=== PATIENT | male | born 1955 | race Caucasian/White ===

== ENCOUNTER → 2017-01-02 | Outpatient (CLI) | payer MEDICARE, MEDICAID ==
[~2017-01-02] MED LIST: AMOXICILLIN500 MG PO; AUGMENTIN 875875 MG PO; CLONIDINE0.1 MG PO; FLONASE ALLERG9.9 ML NAS; MOTRIN400 MG PO; PREDNISONE10 MG PO; TRAMADOL HCL50 MG PO; VIBRAMYCIN100 MG PO; VICODIN 5/500 505 MG PO; ZANTAC150 MG PO
[2017-01-02 08:12] LABS: BASO # 0.1 10*3/uL (0.0-0.1); BASO % 0.6 % (0.0-1.0); EOS # 0.3 10*3/uL (0.0-0.4); EOS % 2.9 % (1.0-4.0); HEMATOCRIT 41.9 % (42.0-52.0); HEMOGLOBIN 13.9 g/dl (14.0-18.0); IG # 0.1 10*3/uL (0.0-0.1); LYMPH # 2.6 10*3/uL (1.3-4.4); LYMPH % 24.6 % (27.0-41.0); MEAN CELL VOLUME 93.3 fl (80.0-94.0); MEAN CORPUSCULAR HGB CONC 33.2 g/dl (33.0-37.0); MEAN PLATELET VOLUME 10.8 fl (9.6-12.3); MONO # 1.2 10*3/uL (0.1-1.0); MONO % 11.5 % (3.0-9.0); NEUT # 6.2 10*3/uL (2.3-7.9); NEUT % 59.9 % (47.0-73.0); PLATELET COUNT AUTOMATED 257 10*3/uL (130-400); RED BLOOD COUNT 4.49 10*6/uL (4.50-5.90); RED CELL DISTRI WIDTH 13.7 % (0-14.5); WHITE BLOOD COUNT 10.4 10*3/uL (4.8-10.8)
[2017-01-02 08:40] LABS: ALBUMIN 3.8 gm/dl (3.1-4.5); ALKALINE PHOSPHATASE 92 U/L (45-117); BILIRUBIN, TOTAL 0.3 mg/dl (0.2-1.0); BUN 16 mg/dl (7-24); CARBON DIOXIDE 28 mmol/L (21-32); CHLORIDE 102 mmol/L (98-107); CHOLESTEROL 118 mg/dL (<200); EST GLOM FILT AFRICAN AMERICAN > 60 ml/min; FREE T4 1.16 ng/dl (0.76-1.46); GLUCOSE 100 mg/dL (65-99); HDL CHOLESTEROL 33 mg/dl (40-60); LDL CHOLESTEROL 55 mg/dL (9-159); POTASSIUM 4.1 mmol/L (3.5-5.1); SGOT/AST 14 IU/L (3-35); SGPT/ALT 12 U/L (12-78); SODIUM 139 mmol/L (136-145); TOTAL PROTEIN 7.9 gm/dL (6.4-8.2); TRIGLYCERIDES 152 mg/dl (<150); VLDL CHOLESTEROL 30 mg/dL (6-40)
[2017-01-03 05:07] LABS: MICRO ALBUMIN/CRE RATIO 17.2 (0.0-30.0)
== END | disposition home or self-care (01) ==
LOC: LAB 07:42
PROVIDERS: Internal Medicine
DX: E78.5 Hyperlipidemia, unspecified (principal); I10 Essential (primary) hypertension

== ENCOUNTER → 2017-03-04 | Outpatient (CLI) | payer MEDICARE, MEDICAID ==
[2017-03-04 14:09] LABS: ALBUMIN 3.8 gm/dl (3.1-4.5); BUN 15 mg/dl (7-24); CHLORIDE 101 mmol/L (98-107); CREATININE 1.17 mg/dL (0.70-1.30); PHOSPHOROUS 3.1 mg/dL (2.5-4.9); POTASSIUM 3.9 mmol/L (3.5-5.1); SODIUM 135 mmol/L (136-145)
[2017-03-05 11:05] LABS: MICRO ALBUMIN/CRE RATIO 10.2 (0.0-30.0)
== END | disposition home or self-care (01) ==
LOC: LAB 12:51 → US 13:00
PROVIDERS: Internal Medicine
DX: N18.3 Chronic kidney disease, stage 3 (moderate) (principal); N32.89 Other specified disorders of bladder; N28.1 Cyst of kidney, acquired

== ENCOUNTER → 2018-04-14 | Outpatient (CLI) | payer MEDICARE, MEDICAID ==
[~2018-04-14] MED LIST changes: +ADVAIR HFA 115-12 GM INH; +AMLODIPINE BESY10 MG PO; +ATENOLOL25 MG PO; +ATORVASTATIN CA20 M1 PO; +GOOD NEIGHBOR150 MG PO; +LISINOPRIL-HCT1 EACH PO; +NATURE'S BLEND F1 MG PO; +NEURONTIN300 MG PO; +PROVENTIL HFA6.7 GM IH
[2018-04-14 09:54] LABS: BASO # 0.1 10*3/uL (0.0-0.1); BASO % 0.8 % (0.0-1.0); EOS # 0.2 10*3/uL (0.0-0.4); EOS % 2.9 % (1.0-4.0); HEMATOCRIT 40.9 % (42.0-52.0); HEMOGLOBIN 13.6 g/dl (14.0-18.0); LYMPH # 2.1 10*3/uL (1.3-4.4); LYMPH % 24.9 % (27.0-41.0); MEAN CELL VOLUME 92.1 fl (80.0-94.0); MEAN CORPUSCULAR HGB 30.6 pg (27.0-31.0); MEAN CORPUSCULAR HGB CONC 33.3 g/dl (33.0-37.0); MEAN PLATELET VOLUME 10.1 fl (9.6-12.3); MONO % 11.9 % (3.0-9.0); NEUT # 4.9 10*3/uL (2.3-7.9); NEUT % 59.3 % (47.0-73.0); PLATELET COUNT AUTOMATED 212 10*3/uL (130-400); RED BLOOD COUNT 4.44 10*6/uL (4.50-5.90); RED CELL DISTRI WIDTH 13.7 % (0-14.5); WHITE BLOOD COUNT 8.3 10*3/uL (4.8-10.8)
[2018-04-14 10:11] LABS: ALBUMIN 3.8 gm/dl (3.1-4.5); ALKALINE PHOSPHATASE 88 U/L (45-117); BUN 14 mg/dl (7-24); CHLORIDE 102 mmol/L (98-107); CHOLESTEROL 100 mg/dL (<200); CREATININE 1.26 mg/dL (0.70-1.30); FREE T4 1.06 ng/dl (0.76-1.46); HDL CHOLESTEROL 32 mg/dl (40-60); LDL CHOLESTEROL 40 mg/dL (9-159); POTASSIUM 4.2 mmol/L (3.5-5.1); SGOT/AST 17 IU/L (3-35); SGPT/ALT 11 U/L (12-78); SODIUM 136 mmol/L (136-145); TOTAL PROTEIN 7.8 gm/dL (6.4-8.2); TRIGLYCERIDES 139 mg/dl (<150); VLDL CHOLESTEROL 28 mg/dL (6-40)
[2018-04-15 09:07] LABS: PROSTATE SPECIFIC AG FREE 0.3 ng/mL; PROSTATE SPECIFIC AG, SERUM 0.7 ng/mL (0.0-4.0)
== END | disposition home or self-care (01) ==
LOC: LAB 09:10
PROVIDERS: Internal Medicine
DX: Z12.5 Encounter for screening for malignant neoplasm of prostate (principal); I10 Essential (primary) hypertension

== ENCOUNTER → 2018-05-09 | Day surgery (SDC) | payer MEDICARE, MEDICAID ==
[~2018-05-09] VITALS: Ht 200.6 cm; Wt 140.6 kg
--- NOTE | ~2018-05-09 | O ---
[place], [place] OPERATIVE NOTE NAME: MANISHA GONZALEZ UNIT #: [id number] ROOM: DOCTOR: NEETU ESCOTO MD BIRTHDATE: [birth year] DOS: 05/09/2018 HISTORY OF PRESENT ILLNESS: The patient is a 63-year-old patient who presented with chief complaint of pain of concern about colonic screening. His last colonoscopy was 10 years ago. The patient with borderline anemia of 13.6 and 40.9. ALLERGIES: No known medication. FAMILY HISTORY: Noncontributory. PAST SURGICAL HISTORY: Noncontributory. PAST MEDICAL HISTORY: COPD, obesity, hypertension, hyperlipidemia, pulmonary embolism. SOCIAL HISTORY: Smoker, stopped alcohol consumption 15 years ago. PROCEDURE: Today's procedure part of investigation is colonoscopy plus piecemeal polypectomy, rectal and splenic flexure, sessile polyp. PREMEDICATION: Propofol. SCOPE: Olympus folding colonoscope 10L video. REPORT: After putting the patient in left lateral position and application of lubricant to the scope, the scope was introduced. Thereafter, under direct visualization, I advanced through a very tortuous and very redundant colon. Upon this ileocecal valve was defined. Retained semi-liquid stool all along the length of colon, which was hindering visualization and makes detail assessment quite difficult was noticed. Piecemeal polypectomy on splenic flexure, rectal pouch, and sessile polyps performed. Air was suctioned out. The patient was extubated, tolerated the procedure well. IMPRESSION: Retained semi-liquid stool all along the length of the colon. Compromised visualization to be about 70% only diverticulosis of left colon, tortuous and redundant colon, colonic polyp and splenic flexure and rectal pouch. PLAN AND DISCUSSION: High fiber diet. ACTIVITY: Ad dony. FOLLOWUP: As outpatient. Thank you very much indeed. [place], [place] OPERATIVE NOTE NAME: MANISHA GONZALEZ UNIT #: [id number] ROOM: DOCTOR: NEETU ESCOTO MD BIRTHDATE: [birth year] NEETU ESCOTO MD CM:OPRECORD:OPERATIVE NOTE [id number] NEETU ESCOTO MD 05/09/18 1525 interface
[2018-05-09 11:30] VITALS: BP 128/78
[2018-05-09 13:46] VITALS: BP 101/51
[2018-05-09 14:00] VITALS: BP 96/57
[2018-05-09 14:15] VITALS: BP 114/62
== END | disposition home or self-care (01) ==
LOC: SDC 05-07 08:45
DX: D12.5 Benign neoplasm of sigmoid colon (principal); K62.1 Rectal polyp; K57.30 Diverticulosis of large intestine without perforation or abscess without bleeding; D64.9 Anemia, unspecified; J44.9 Chronic obstructive pulmonary disease, unspecified; E66.9 Obesity, unspecified; Z68.34 Body mass index [BMI] 34.0-34.9, adult; I10 Essential (primary) hypertension; F17.210 Nicotine dependence, cigarettes, uncomplicated; F10.21 Alcohol dependence, in remission; F41.9 Anxiety disorder, unspecified; F43.29 Adjustment disorder with other symptoms; Z86.711 Personal history of pulmonary embolism; Z98.890 Other specified postprocedural states; Z79.899 Other long term (current) drug therapy; Z83.3 Family history of diabetes mellitus; Z82.49 Family history of ischemic heart disease and other diseases of the circulatory system

== ENCOUNTER → 2019-04-22 | Outpatient (CLI) | payer MEDICARE, MEDICAID | END | disposition home or self-care (01) | LOC: LAB 15:44 | PROVIDERS: Internal Medicine | DX: E11.22 Type 2 diabetes mellitus with diabetic chronic kidney disease (principal); N18.9 Chronic kidney disease, unspecified ==

== ENCOUNTER → 2019-11-26 | Outpatient (CLI) | payer MEDICARE, MEDICAID ==
[2019-11-26 12:34] LABS: BASO # 0.1 10*3/uL (0.0-0.1); BASO % 0.8 % (0.0-1.0); EOS # 0.3 10*3/uL (0.0-0.4); EOS % 3.3 % (1.0-4.0); HEMATOCRIT 39.4 % (42.0-52.0); LYMPH # 1.8 10*3/uL (1.3-4.4); LYMPH % 19.3 % (27.0-41.0); MEAN CELL VOLUME 92.3 fl (80.0-94.0); MEAN CORPUSCULAR HGB 30.4 pg (27.0-31.0); MONO # 1.2 10*3/uL (0.1-1.0); MONO % 12.7 % (3.0-9.0); NEUT # 5.7 10*3/uL (2.3-7.9); NEUT % 63.1 % (47.0-73.0); PLATELET COUNT AUTOMATED 257 10*3/uL (130-400); RED BLOOD COUNT 4.27 10*6/uL (4.50-5.90); WHITE BLOOD COUNT 9.1 10*3/uL (4.8-10.8)
[2019-11-26 12:56] LABS: BUN 17 mg/dl (7-24); CHLORIDE 101 mmol/L (98-107); CREATININE 1.39 mg/dL (0.70-1.30); SODIUM 133 mmol/L (136-145)
[2019-11-26 13:00] LABS: BILIRUBIN 1+ (NEGATIVE); BLOOD 3+ (NEGATIVE); CLARITY CLOUDY (CLEAR); COLOR YELLOW (YELLOW); GLUCOSE NEGATIVE (NEGATIVE); KETONE NEGATIVE (NEGATIVE); PH 6.5 (5.0-9.0); SPECIFIC GRAVITY 1.015 (1.005-1.030)
[2019-11-26 13:01] LABS: LEUKO ESTERASE 3+ (NEGATIVE); NITRITE POSITIVE (NEGATIVE); UROBILINOGEN 0.2 E.U./dl (0.2-1.0)
[2019-11-26 13:14] LABS: BACTERIA 4+; RBC TNTC rbc/hpf (0-2); WBC TNTC wbc/hpf (0-5)
[2019-11-27 11:09] LABS: PROSTATE SPECIFIC AG FREE 0.21 ng/mL; PROSTATE SPECIFIC AG, SERUM 1.5 ng/mL (0.0-4.0)
== END | disposition home or self-care (01) ==
LOC: LAB 11:47 → US 13:00
PROVIDERS: Internal Medicine
DX: N28.1 Cyst of kidney, acquired (principal); N40.1 Benign prostatic hyperplasia with lower urinary tract symptoms; I10 Essential (primary) hypertension; R39.198 Other difficulties with micturition

== ENCOUNTER → 2019-11-30 | Outpatient (CLI) | payer MEDICARE, MEDICAID ==
[2019-11-30 15:56] LABS: BILIRUBIN NEGATIVE (NEGATIVE); BLOOD 1+ (NEGATIVE); CLARITY CLOUDY (CLEAR); COLOR YELLOW (YELLOW); GLUCOSE NEGATIVE (NEGATIVE); KETONE NEGATIVE (NEGATIVE); SPECIFIC GRAVITY 1.015 (1.005-1.030)
[2019-11-30 15:57] LABS: LEUKO ESTERASE 2+ (NEGATIVE); NITRITE POSITIVE (NEGATIVE); UROBILINOGEN 0.2 E.U./dl (0.2-1.0)
[2019-11-30 16:00] LABS: BACTERIA 4+; WBC TNTC wbc/hpf (0-5)
[2019-11-30 16:19] LABS: BUN 16 mg/dl (7-24); CHLORIDE 104 mmol/L (98-107); POTASSIUM 3.8 mmol/L (3.5-5.1); SODIUM 137 mmol/L (136-145)
[2019-11-30 17:00] LABS: BASO % 0.4 % (0.0-1.0); EOS # 0.4 10*3/uL (0.0-0.4); HEMATOCRIT 38.6 % (42.0-52.0); LYMPH # 1.9 10*3/uL (1.3-4.4); LYMPH % 20.9 % (27.0-41.0); MEAN CELL VOLUME 91.3 fl (80.0-94.0); MEAN CORPUSCULAR HGB 29.6 pg (27.0-31.0); MEAN CORPUSCULAR HGB CONC 32.4 g/dl (33.0-37.0); MEAN PLATELET VOLUME 10.4 fl (9.6-12.3); MONO # 1.2 10*3/uL (0.1-1.0); MONO % 12.7 % (3.0-9.0); NEUT # 5.6 10*3/uL (2.3-7.9); NEUT % 61.4 % (47.0-73.0); PLATELET COUNT AUTOMATED 260 10*3/uL (130-400); RED BLOOD COUNT 4.23 10*6/uL (4.50-5.90); WHITE BLOOD COUNT 9.1 10*3/uL (4.8-10.8)
== END | disposition home or self-care (01) ==
LOC: LAB 15:33
PROVIDERS: Internal Medicine
DX: N30.01 Acute cystitis with hematuria (principal)

== ENCOUNTER → 2019-12-21 | Outpatient (CLI) | payer MEDICARE, MEDICAID ==
[2019-12-21 16:53] LABS: PTH INTACT 46.5 pg/mL (18.5-88.0); VITAMIN D, 25-HYDROXY 39.3 ng/mL (30-100)
[2019-12-21 17:45] LABS: BILIRUBIN 1+ (NEGATIVE); BLOOD 1+ (NEGATIVE); CLARITY SL CLOUDY (CLEAR); COLOR YELLOW (YELLOW); GLUCOSE NEGATIVE (NEGATIVE); KETONE NEGATIVE (NEGATIVE); LEUKO ESTERASE 1+ (NEGATIVE); NITRITE NEGATIVE (NEGATIVE); SPECIFIC GRAVITY 1.015 (1.005-1.030)
[2019-12-21 17:53] LABS: BACTERIA 1+; RBC 21-30 rbc/hpf (0-2)
[2019-12-21 17:54] LABS: MUCOUS 1+
== END | disposition home or self-care (01) ==
LOC: LAB 15:18
PROVIDERS: Internal Medicine Nephrology
DX: N18.3 Chronic kidney disease, stage 3 (moderate) (principal)

== ENCOUNTER → 2020-01-05 | Outpatient (CLI) | payer MEDICARE, MEDICAID ==
[2020-01-05 16:54] LABS: ALBUMIN 3.9 gm/dl (3.1-4.5); ALKALINE PHOSPHATASE 96 U/L (45-117); BUN 24 mg/dl (7-24); CHLORIDE 102 mmol/L (98-107); SGOT/AST 17 IU/L (3-35); SGPT/ALT 12 U/L (12-78); SODIUM 135 mmol/L (136-145); TOTAL PROTEIN 8.3 gm/dL (6.4-8.2)
== END | disposition home or self-care (01) ==
LOC: LAB 15:19
PROVIDERS: Internal Medicine Nephrology
DX: N18.3 Chronic kidney disease, stage 3 (moderate) (principal); N30.01 Acute cystitis with hematuria

== ENCOUNTER 2020-04-25 12:00 | Inpatient (IN) | payer MEDICARE, MEDICAID ==
[~2020-04-25] VITALS: Ht 200.7 cm; Wt 156.1 kg
[2020-04-25 12:18] VITALS: BP 116/88
[2020-04-25 12:29] LABS: BASO # 0.1 10*3/uL (0.0-0.1); BASO % 0.6 % (0.0-1.0); EOS # 0.4 10*3/uL (0.0-0.4); EOS % 4.2 % (1.0-4.0); LYMPH # 1.6 10*3/uL (1.3-4.4); LYMPH % 17.6 % (27.0-41.0); MEAN CELL VOLUME 93.4 fl (80.0-94.0); MEAN CORPUSCULAR HGB 29.5 pg (27.0-31.0); MEAN CORPUSCULAR HGB CONC 31.6 g/dl (33.0-37.0); MEAN PLATELET VOLUME 9.8 fl (9.6-12.3); MONO # 1.1 10*3/uL (0.1-1.0); MONO % 11.6 % (3.0-9.0); NEUT # 5.9 10*3/uL (2.3-7.9); NEUT % 65.6 % (47.0-73.0); PLATELET COUNT AUTOMATED 239 10*3/uL (130-400); RED BLOOD COUNT 3.96 10*6/uL (4.50-5.90); RED CELL DISTRI WIDTH 13.3 % (0-14.5); WHITE BLOOD COUNT 9.1 10*3/uL (4.8-10.8)
[2020-04-25 12:38] LABS: ACT PARTIAL THROMBO TIME 25.4 SECONDS (20.0-32.1)
[2020-04-25 12:44] LABS: ALBUMIN 3.4 gm/dl (3.1-4.5); ALKALINE PHOSPHATASE 101 U/L (45-117); BUN 19 mg/dl (7-24); CHLORIDE 106 mmol/L (98-107); CREATININE 1.48 mg/dL (0.70-1.30); LIPASE 121 U/L (73-393); POTASSIUM 4.3 mmol/L (3.5-5.1); SGOT/AST 15 IU/L (3-35); SGPT/ALT 11 U/L (12-78); SODIUM 139 mmol/L (136-145); TOTAL PROTEIN 7.4 gm/dL (6.4-8.2)
[2020-04-25 12:51] LABS: TROPONIN I < 0.015 ng/ml (<0.045)
[2020-04-25 13:32] VITALS: BP 106/63
[2020-04-25 15:00] VITALS: BP 119/89
--- NOTE | 2020-04-25 15:14 | NUR ---
A 65, admitted to , under the services of KIRIT Bond MD with a diagnosis of SYNCOPE AND NEW ONSET AFIB . Chief complaint is SYNCOPE. Patient arrived via bed from ER. Monitor applied. Initial assessment completed. Vital signs taken and recorded. KIRIT BOND MD notified of admission to the unit. Orders received. See assessment for past medical history, medications and allergies. Patient and/or family oriented to unit. [facility] visitation policy reviewed. Clothing/patient valuable form completed. OCTAVIA HEATON
--- NOTE | 2020-04-25 15:36 | NUR ---
DR. BERGMAN NOTIFIED OF TROPONIN
--- NOTE | 2020-04-25 15:53 | NUR ---
NOTIFIED OF CONSULT, WILL SEE PT THIS EVENING
[2020-04-25] MEDS ORDERED: VITAMIN D250 MC1 PO (15:54)
[2020-04-25] MEDS ORDERED: GOOD SENSE ASPI81 M1 PO (15:54)
[2020-04-25] MEDS ORDERED: FLOMAX0.4 MG PO (15:55)
[2020-04-25] MEDS ORDERED: OMEPRAZOLE20 M2 PO (15:57)
[2020-04-25] MEDS ORDERED: LISINOPRIL-HCT1 EACH PO (15:58)
[2020-04-25 16:00] VITALS: BP 122/72
--- NOTE | 2020-04-25 19:50 | NUR ---
NOTIFIED DR. WALTON THAT PATIENT BLOOD PRESSURE IS 86/60. PATIENT ASYMPTOMATIC. SEE NEW ORDERS
[2020-04-25 20:00] VITALS: BP 86/60
--- NOTE | 2020-04-25 23:02 | NUR ---
NOTIFIED DR. WALTON OF CRITICAL TROPONIN, 0.071 AND BLOOD PRESSURE 80/58. NO NEW ORDERS RECEIVED. WILL CONTINUE TO MONITOR.
[2020-04-25 23:03] VITALS: BP 80/58
[2020-04-25 23:06] LABS: BILIRUBIN Negative (Negative); BLOOD 3+ (Negative); CLARITY Cloudy (Clear); COLOR Yellow (Yellow); GLUCOSE Negative (Negative); KETONE Negative (Negative); LEUKO ESTERASE 1+ (Negative); NITRITE Positive (Negative)
[2020-04-25 23:27] LABS: BACTERIA 1+; RBC TNTC rbc/hpf (0-2)
[2020-04-26] VITALS: BP 98/64
--- NOTE | 2020-04-26 01:30 | NUR ---
NOTIFIED DR. WALTON OF CRITICAL TROPONIN, 0.065. DR. WALTON MADE AWARE PATIENT BLOOD PRESSURE IS NOW 98/64. NO NEW ORDERS RECEIVED WILL CONTINUE TO MONITOR.
[2020-04-26 06:19] LABS: BASO # 0.1 10*3/uL (0.0-0.1); BASO % 0.6 % (0.0-1.0); EOS # 0.3 10*3/uL (0.0-0.4); EOS % 3.6 % (1.0-4.0); LYMPH % 20.7 % (27.0-41.0); MEAN CELL VOLUME 92.5 fl (80.0-94.0); MEAN CORPUSCULAR HGB 29.3 pg (27.0-31.0); MEAN CORPUSCULAR HGB CONC 31.7 g/dl (33.0-37.0); MEAN PLATELET VOLUME 10.3 fl (9.6-12.3); MONO % 10.7 % (3.0-9.0); NEUT # 6.1 10*3/uL (2.3-7.9); PLATELET COUNT AUTOMATED 253 10*3/uL (130-400); RED BLOOD COUNT 3.89 10*6/uL (4.50-5.90); RED CELL DISTRI WIDTH 13.4 % (0-14.5); WHITE BLOOD COUNT 9.5 10*3/uL (4.8-10.8)
[2020-04-26 06:32] LABS: ALBUMIN 3.2 gm/dl (3.1-4.5); ALKALINE PHOSPHATASE 84 U/L (45-117); BUN 16 mg/dl (7-24); CHLORIDE 107 mmol/L (98-107); POTASSIUM 3.9 mmol/L (3.5-5.1); SGOT/AST 17 IU/L (3-35); SGPT/ALT 11 U/L (12-78); SODIUM 140 mmol/L (136-145); TOTAL PROTEIN 7.2 gm/dL (6.4-8.2)
[2020-04-26 06:38] LABS: THYROID STIM HORMONE (HS) 0.589 uIU/ml (0.358-4.75)
[2020-04-26 08:00] VITALS: BP 104/69
--- NOTE | 2020-04-26 09:00 | NUR ---
Day Care Aide in to talk to patient. Patient states lives at home with his family. There are 0 steps in the home. There are 5 outside steps. Physician: Dr. Oneil Doan [facility]acy: [facility] Home health services: none Patient's level of ADLs: INDEPENDENT Patient has working utilities: yes DME: none Follow-up physician's appointment after d/c: he prefers to make his own follow up appt after discharge Does patient want to access PORTAL?: no Discharge plan discussed with patient. He lives at home with his family. He states he is independent in his ADLs and ambulation. Discussed home health care services and he declines. CM will continue to follow with any discharge planning needs. When medically stable he will be discharged to home. He states either his niece or his niece's boyfriend will provide transportation on discharge. MANISHA PATEL
[2020-04-26 12:00] VITALS: BP 98/58
--- NOTE | 2020-04-26 13:30 | NUR ---
INFORMED CONSENT OBTAINED FOR LEXISCAN NUCLEAR STRESS TEST WITH DR. TRIMBLE. RESTING EKG INCOMPLETE LBBB WITH A RESTING HR OF 77 WITH BP OF 110/62. LUNGS WITH DIMINISHED BS WITH SPO2 OF 98% ON ROOM AIR. PT COMPLETED A 1:00 LEXICAN PROTOCOL RECEIVING LEXISCAN 0.4 MG IV OVER 10 SECONDS. HAD NO CHEST PAIN OR ANY EKG CHANGES. HAD A PEAK HR OF 87 WITH BP OF 92/64. LAST RECOVERY HR OF 83 WITH BP OF 106/68. AWAITING SCANNING IN STABLE CONDITION.
[2020-04-26 16:00] VITALS: BP 114/64
[2020-04-26 20:00] VITALS: BP 96/53
[2020-04-27] VITALS: BP 85/51
--- NOTE | 2020-04-27 04:00 | NUR ---
PATIENT SLEEPING. NO SIGNS OF DISTRESS. RESPIRATIONS EASY, NON LABORED. BED IN LOWEST POSITION, CALL LIGHT WITHIN REACH. WILL CONTINUE TO MONITOR.
[2020-04-27 08:00] VITALS: BP 118/63
--- NOTE | 2020-04-27 08:33 | NUR ---
Discussed discharge planning with Dr. Doan. Patient is a possible discharge today.
--- NOTE | 2020-04-27 09:00 | NUR ---
CM in to see patient. No new needs or request at this time. Discussed home health care services and he declines. CM will continue to follow for any discharge planning needs. When medically stable he will be discharged to home.
[2020-04-27 12:00] VITALS: BP 115/68
[2020-04-27 16:00] VITALS: BP 122/80
[2020-04-27 20:00] VITALS: BP 132/84
[2020-04-28] VITALS: BP 101/67
--- NOTE | 2020-04-28 08:05 | NUR ---
[facility] HERE TO PICK PATIENT UP TO TRANSPORT TO [facility] FOR CARDIAC CATH THIS AM. PATIENT'S IV SITE REMAINS PATENT AND INTACT. CLIP WRAPPER APPLIED. PATIENT TAKEN OFF FLOOR. REPORT WAS GIVEN LAST NIGHT BE PRIOR RN.
[2020-04-28] MEDS ORDERED: XARE20MG PO (15:22)
== END 2020-04-28 08:05 | disposition other institution (70) | DRG 309 ==
LOC: ED 12:00 → 4E 13:25 → EDHOLD 13:25 → 4E 14:03
PROVIDERS: Emergency Medicine; Internal Medicine Nephrology; ADMIT Internal Medicine; ATTEND Internal Medicine
PROC: 4A02XM4 Measurement of Cardiac Total Activity, External Approach (ICD-10-PCS; principal; 2020-04-26)
PROC: 3E073KZ Introduction of Other Diagnostic Substance into Coronary Artery, Percutaneous Approach (ICD-10-PCS; 2020-04-26)
DX: I48.0 Paroxysmal atrial fibrillation (principal); N39.0 Urinary tract infection, site not specified; N18.9 Chronic kidney disease, unspecified; K21.9 Gastro-esophageal reflux disease without esophagitis; M46.92 Unspecified inflammatory spondylopathy, cervical region; E78.5 Hyperlipidemia, unspecified; I12.9 Hypertensive chronic kidney disease with stage 1 through stage 4 chronic kidney disease, or unspecified chronic kidney disease; N40.1 Benign prostatic hyperplasia with lower urinary tract symptoms; R94.39 Abnormal result of other cardiovascular function study; Z82.49 Family history of ischemic heart disease and other diseases of the circulatory system; Z83.3 Family history of diabetes mellitus; Z79.899 Other long term (current) drug therapy

== ENCOUNTER → 2020-05-10 | Outpatient (CLI) | payer MEDICARE, MEDICAID ==
[~2020-05-10] MED LIST changes: +FLOMAX0.4 MG PO; +GOOD SENSE ASPI81 M1 PO; +OMEPRAZOLE20 M2 PO; +VITAMIN D250 MC1 PO; +XARE20MG PO
== END | disposition home or self-care (01) ==
LOC: COVID19 14:23
PROVIDERS: ATTEND Internal Medicine Nephrology
DX: U07.1 COVID-19 (principal)

== ENCOUNTER → 2020-06-16 | Outpatient (CLI) | payer MEDICARE, MEDICAID ==
[2020-06-16 10:32] LABS: BILIRUBIN Negative (Negative); BLOOD 3+ (Negative); CLARITY Clear (Clear); COLOR Yellow (Yellow); GLUCOSE Negative (Negative); KETONE Negative (Negative); LEUKO ESTERASE 1+ (Negative); NITRITE Negative (Negative); PH 6.5 (4.5-8.0)
[2020-06-16 10:53] LABS: BUN 14 mg/dl (7-24); CHLORIDE 104 mmol/L (98-107); CREATININE 1.28 mg/dL (0.70-1.30); POTASSIUM 4.4 mmol/L (3.5-5.1); SODIUM 139 mmol/L (136-145)
[2020-06-16 10:56] LABS: RBC TNTC rbc/hpf (0-2)
[2020-06-16 10:59] LABS: BACTERIA 1+; WBC 16-20 wbc/hpf (0-5)
== END | disposition home or self-care (01) ==
LOC: NM 05-06 08:45 → LAB 08:15 → NM 08:30
PROVIDERS: ATTEND Internal Medicine Nephrology
DX: K82.8 Other specified diseases of gallbladder (principal); N18.30 Chronic kidney disease, stage 3 unspecified; Z79.899 Other long term (current) drug therapy

== ENCOUNTER → 2021-06-13 | Outpatient (CLI) | payer MEDICARE, MEDICAID | END | disposition home or self-care (01) | LOC: US 08:36 | PROVIDERS: ATTEND Internal Medicine | DX: R31.0 Gross hematuria (principal) ==

== ENCOUNTER → 2021-07-04 | Outpatient (CLI) | payer MEDICARE, MEDICAID ==
[2021-07-04 07:17] LABS: BASO # 0.1 10*3/uL (0.0-0.1); BASO % 0.6 % (0.0-1.0); EOS # 0.3 10*3/uL (0.0-0.4); EOS % 2.9 % (1.0-4.0); HEMATOCRIT 33.7 % (42.0-52.0); LYMPH # 1.9 10*3/uL (1.3-4.4); LYMPH % 18.5 % (27.0-41.0); MEAN CELL VOLUME 87.3 fl (80.0-94.0); MEAN CORPUSCULAR HGB 26.9 pg (27.0-31.0); MEAN CORPUSCULAR HGB CONC 30.9 g/dl (33.0-37.0); MEAN PLATELET VOLUME 9.4 fl (9.6-12.3); MONO # 1.2 10*3/uL (0.1-1.0); MONO % 11.4 % (3.0-9.0); NEUT # 6.8 10*3/uL (2.3-7.9); NEUT % 66.2 % (47.0-73.0); PLATELET COUNT AUTOMATED 287 10*3/uL (130-400); RED BLOOD COUNT 3.86 10*6/uL (4.50-5.90); RED CELL DISTRI WIDTH 14.2 % (0-14.5); WHITE BLOOD COUNT 10.3 10*3/uL (4.8-10.8)
[2021-07-04 07:38] LABS: ALBUMIN 3.1 gm/dl (3.1-4.5); CREATININE 1.56 mg/dL (0.70-1.30); POTASSIUM 4.1 mmol/L (3.5-5.1); TOTAL PROTEIN 7.9 gm/dL (6.4-8.2)
[2021-07-04 07:57] LABS: BILIRUBIN 1+ (Negative); BLOOD 2+ (Negative); CLARITY Turbid (Clear); COLOR Red (Yellow); GLUCOSE Negative (Negative); KETONE Negative (Negative); NITRITE Positive (Negative); SPECIFIC GRAVITY 1.015 (1.001-1.030); UROBILINOGEN 0.2 E.U./dl (0.0-1.0)
[2021-07-04 08:49] LABS: LEUKO ESTERASE 2+ (Negative); RBC TNTC rbc/hpf (0-2)
[2021-07-04 08:52] LABS: BACTERIA 1+
== END | disposition home or self-care (01) ==
LOC: LAB 06:55 → CT 08:00
PROVIDERS: ATTEND Urology
DX: K76.89 Other specified diseases of liver (principal); D40.0 Neoplasm of uncertain behavior of prostate; R53.83 Other fatigue; N28.1 Cyst of kidney, acquired; Z12.5 Encounter for screening for malignant neoplasm of prostate